=== PATIENT | female | born 1965 | race Hispanic/Latino ===

== ENCOUNTER 2024-06-30 17:48 | Emergency (ER) | payer OTHER, SELFPAY ==
[2024-06-30 17:55] VITALS: BP 144/85
[2024-06-30 17:59] LABS: Glucose - Point of Care 341 mg/dl (70-99)
[2024-06-30 18:09] LABS: Hematocrit 41.3 % (37.0-47.0); Hemoglobin 13.4 g/dL (12.0-16.0); Mean Corp Hgb Conc. 32.4 g/dL (33.0-37.0); Mean Corpuscular Hgb 28.8 pg (27.0-31.0); Mean Corpuscular Volume 88.8 fL (81.0-99.0); Platelet Count 279 10^3/uL (130-400); Red Blood Cell Count 4.65 10^6/uL (4.20-5.40); Red Cell Dist. Width 13.9 % (11.5-14.5); White Blood Cell Count 6.3 10^3/uL (4.8-10.8)
[2024-06-30 18:24] LABS: ALT (SGPT) 46 U/L (0-35); Albumin 4.6 g/dl (3.5-5.0); Alkaline Phosphatase 89 U/L (38-126); Blood Urea Nitrogen 14 mg/dl (7-17); Calcium 9.6 mg/dl (8.4-10.2); Carbon Dioxide 24 mmol/L (22-30); Chloride 104 mmol/L (98-107); Potassium 4.1 mmol/L (3.5-5.1); Sodium 139 mmol/L (135-145); Total Bilirubin 0.5 mg/dl (0.2-1.3); Total Protein 7.3 g/dl (6.3-8.2); eGFR > 60.00
[2024-06-30 18:28] LABS: % Basophils 0.5 % (0-2); % Immature Granulocytes 0.3 % (0-0.5); % Lymphocytes 60.1 % (20.5-51.1); % Monocytes 4.9 % (1.7-9.3); % Neutrophils 31.2 % (42.2-75.2); Absolute Eosinophils 0.2 10^3/uL (0-0.7); Absolute Lymphocytes 3.8 10^3/uL (1.2-3.4); Absolute Monocytes 0.3 10^3/uL (0.1-0.6); Nucleated Red Blood Cells % 0 %
[2024-06-30 18:34] LABS: AST (SGOT) 66 U/L (14-36); Glucose 352 mg/dl (70-99)
[2024-06-30 18:53] LABS: B-Hydroxybutyrate 0.18 mmol/L (0.02-0.27)
--- NOTE | 2024-06-30 20:12 | ED.GENMED ---
History of Present Illness
General
Chief Complaint: Blood Sugar Problem
Source: patient
Exam Limitations: none
Time Seen by Provider: 06/30/24 19:52
Nursing documentation reviewed up to this point in time: agreed with
History of Present Illness
History of Present Illness:
Patient with history of insulin dependent diabetes, presents to ED requesting medication refill, as she has run out of her medications, over the past 3 weeks. As [place] recently, patient currently does not have any
primary care physician who can provide her with medications. Patient has an appointment with new family physician next month, for initial consultation. Patient denies fever or chills. Reports nausea sensation without vomiting. Denies diarrhea.
Denies abdominal pain. Denies chest pain. Denies shortness of breath. Denies weakness. Patient is complaining of intermittent headache as well as nausea sensation, which she has experienced in the past, when her blood sugar has been high.
Past History
Past History
ED Past Medical History: HTN, Hypercholesterolemia, IDDM and Other (Low back issues, Renal calculus)
ED Past Surgical History: Orthopedic (lower back surgery) and Urological (Stent)
Social History
Tobacco: Non-smoker
Alcohol: None
Drug: None
Personal: Single
Living: alone
Employment: Not employed
Review of Systems
Review of Systems
Allergies reviewed?: Yes
All Other Systems: ROS reviewed and negative except as documented in HPI and ROS
Constitutional: Reports no symptoms
EENT: Reports no symptoms
Respiratory: Reports no symptoms
Cardiac: Reports no symptoms
ABD/GI: Reports nausea
Musculoskeletal: Reports no symptoms
Skin: Reports no symptoms
Neurological: Reports headache
Phy Exam
Physical Exam
Physical Exam:
Physical Exam
General: no apparent distress, not acutely ill. afebrile
Head: nc/at. eomi
Neck: supple. no meningeal signs.
Heart: s1/s2 regular rate and rhythm, no murmur. equal radial pulses.
Lungs: no acute respiratory distress. clear bilaterally
Abdomen: normal bowel sounds. not tender.
Neuro: alert and oriented. no focal neurological deficits
Skin: no rash
Psychiatric: well kept. interactive and cooperative
Extremities: no edema. no calf tenderness.
Course
Orders/Labs/Results
Orders:
Orders
06/30/24 18:01
B-Hydroxybutyrate Urgent
Complete Blood Count/With Diff Urgent
Comprehensive Metabolic Panel Urgent
06/30/24 20:08
Insulin Aspart [NOVOLOG vial] 12 units SC NOW STA
06/30/24 20:13
Insulin Glargine Lantus [Lantus] 60 units Subcutaneous Insulin Syringe [Syringe-Insulin] 0 unit SC NOW
Abnormal Lab Results
06/30/24 06/30/24 06/30/24
17:58 18:01 20:15
MCHC 32.4 L g/dL
(33.0-37.0)
Absolute Lymphs (auto) 3.8 H 10^3/uL
(1.2-3.4)
Neutrophils % 31.2 L %
(42.2-75.2)
Lymphocytes % 60.1 H %
(20.5-51.1)
Glucose 352 H mg/dl
(70-99)
AST 66 H U/L
(14-36)
ALT 46 H U/L
(0-35)
POC Glucose 341 H mg/dl 281 H mg/dl
(70-99) (70-99)
06/30/24 18:01
06/30/24 18:01
Vital Signs
Initial and Last Documented VS:
Initial Vital Signs
Temp Pulse Resp BP Pulse Ox
98.3 F 69 16 144/85 98
06/30/24 17:55 06/30/24 17:55 06/30/24 17:55 06/30/24 17:55 06/30/24 17:55
Last Documented Vital Signs
Temp Pulse Resp BP Pulse Ox
98.3 F 69 16 144/85 98
06/30/24 17:55 06/30/24 17:55 06/30/24 17:55 06/30/24 17:55 06/30/24 20:19
MDM/Problems Addressed
MDM/Problems Addressed:
Blood work reviewed, significant for expected hyperglycemia, without anion gap. Otherwise, patient is afebrile, hemodynamically stable, and nontoxic-appearing. As patient does not have an appointment for another month, patient will be given
prescription for Lantus, as well as 2 oral diabetic medications, as well as losartan for blood pressure. In addition, patient given information for [facility] clinic, as resource to be utilized, if she is unable to be seen
by her new physician in timely fashion.
Patient will be provided with SC insulin, short acting, as well as her evening dose of Lantus 60 units, prior to discharge, to the care of her family.
*Critical Care Note
Total Time (30-74mins, 75-104mins- exclusive of procedures): Not Applicable
ED Attending Note
-
Portions of this chart may have been created with voice recognition software.� Occasional wrong word or��sound alike� substitutions may have occurred due to the inherent limitations of voice recognition software.
Discharge Plan
Departure
Patient Disposition: Home (Routine Discharge)
Date of Disposition: 06/30/24
Time of Disposition: 20:18
Patient with high blood pressure during this ER visit?: Yes
Condition: Good
Discharge Problem:
Hyperglycemia, Encounter for medication refill
Instructions: High Blood Sugar, Adult ED
Prescriptions:
New
losartan 25 mg tablet
25 mg PO DAILY Qty: 60 0RF
metformin 1,000 mg tablet
1,000 mg PO BID Qty: 120 0RF
pioglitazone 15 mg tablet
15 mg PO DAILY Qty: 60 0RF
No Action
atorvastatin 20 MG tablet
20 mg PO HS
metformin 1,000 MG tablet
1,000 mg PO BID@0800,1800
losartan 25 MG tablet
25 mg PO DAILY
insulin glargine [Lantus Solostar U-100 Insulin] 300 UNITS/3 ML insulin pen
60 units SC HS
dulaglutide [Trulicity] 0.75 MG/0.5 ML pen injector
0.75 mg SQ TH
acetaminophen 325 MG tablet
650 mg PO Q6HPRN PRN (Reason: mild pain/ fever>100.5F) 0RF
cefdinir 300 MG capsule
300 mg PO Q12 Qty: 14 0RF
Referrals:
[facility] [Outside]
Activity Restrictions/Additional Instructions:
As discussed, please follow-up with your primary care physician or referred [facility] for further evaluation and treatment. Your prescriptions have been sent electronically to [facility] pharmacy in [place].
Interventions
Interventions:
*Risk Screen - Suicide Last Done: 06/30/24 18:00
*General Assessment Last Done: 06/30/24 20:31
*Neglect/Abuse Screening Last Done: 06/30/24 18:00
ED- Fall Risk Assessment Last Done: 06/30/24 20:18
*ED COVID-19 Vaccine History Last Done: 06/30/24 20:42
*Nursing Disposition Last Done: 06/30/24 20:31
ED- Neurological Assessment Last Done: 06/30/24 20:18
Discharge Date and Time
Discharge Date/Time: 06/30/24 20:42
Print Language: SRI LANKAN
[2024-06-30] MEDS: NOVOLOG vial 12 UNITS SC (20:14)
[2024-06-30 20:17] LABS: Glucose - Point of Care 281 mg/dl (70-99)
[2024-06-30 20:20] VITALS: BMI 28.6
[2024-06-30] MEDS: LANTUS 0.6 UNITS SC (20:27)
== END 2024-06-30 20:42 | disposition home or self-care (01) ==
LOC: EMR 17:48
PROVIDERS: Emergency Medicine; EMERGENCY PHYSICIAN Emergency Medicine; FAMILY PHYSICIAN Internal Medicine
DX: E11.65 Type 2 diabetes mellitus with hyperglycemia (principal); Z76.0 Encounter for issue of repeat prescription; Z91.148 Patient's other noncompliance with medication regimen for other reason; I10 Essential (primary) hypertension
CPT/HCPCS: 99284; 96372; 80053; 82010; 82962; 85025

== ENCOUNTER 2024-08-30 14:28 | Emergency (ER) | payer OTHER, SELFPAY ==
[2024-08-30 14:34] VITALS: BP 142/86
[2024-08-30 15:20] LABS: COVID-19 Antigen Negative (Negative)
[2024-08-30 16:06] VITALS: BMI 30.3
[2024-08-30 16:09] VITALS: BP 116/81
[2024-08-30] MEDS: TYLENOL 1000 MG PO (16:13)
[2024-08-30] MEDS: TESSALON PERLES 200 MG PO (16:31)
[2024-08-30] MEDS: VENTOLIN NEBULES 2.5 MG INH (16:32)
--- NOTE | 2024-08-30 17:04 | ED.GENMED ---
History of Present Illness
General
Chief Complaint: Cold/Flu/URI Symptoms
Source: patient
Exam Limitations: none
Time Seen by Provider: 08/30/24 16:11
Nursing documentation reviewed up to this point in time: agreed with
History of Present Illness
History of Present Illness:
Patient is a 50-year-old female who presents to the ER for evaluation of cough body aches, headaches and episode of vomiting, Fever chills starting 2 days ago. She took ibuprofen earlier this morning. She denies any shortness of breath but she
does complain of coughing.
Past History
Past History
ED Past Medical History: HTN, Hypercholesterolemia, IDDM and Other (Low back issues, Renal calculus)
ED Past Surgical History: Orthopedic (lower back surgery) and Urological (Stent)
Social History
Tobacco: Non-smoker
Alcohol: None
Drug: None
Personal: Single
Living: alone
Employment: Not employed
Review of Systems
Review of Systems
Allergies reviewed?: Yes
All Other Systems: ROS reviewed and negative except as documented in HPI and ROS
Constitutional: Reports fever, fatigue and chills
EENT: Reports no symptoms
Respiratory: Reports cough
Cardiac: Reports no symptoms
ABD/GI: Reports nausea and vomiting; Denies abdominal pain
: Reports no symptoms
Musculoskeletal: Reports no symptoms
Skin: Reports no symptoms
Neurological: Reports headache
Hematologic/Lymphatic: Reports no symptoms
Psychiatric: Reports no symptoms
Phy Exam
General Physical Exam
General Presentation: no apparent distress
General age: appears stated age
General Skin: warm
General Habitus: normal
General Mental: alert
General Hydration: appears well hydrated
Eye Exam
Eye Exam: PERRL and EOMI
Eye Exam General: PERRL: bilateral and EOM intact: bilateral
Pupil Exam: Bilateral: round and reactive
Cardiovascular Exam
Cardiovascular Exam: regular rate/rhythm, no murmur and normal peripheral pulses
Pulmonary Exam
Pulmonary Exam: lungs clear, no respiratory distress and other (Positive cough)
Neurological Exam
Neurological Exam: alert and oriented x3
Jil Coma Scale
Eye Opening: Spontaneous
Verbal Response: Oriented
Motor Response: Obeys Commands
GCS Total Score: 15
Musculoskeletal Exam
Musculoskeletal Exam: full ROM
Skin Exam
Skin Exam: normal color and warm/dry
Psychiatric Exam
Psychiatric Exam: normal mood/affect
Course
Orders/Labs/Results
Orders:
Orders
08/30/24 14:38
COVID-19 Antigen Urgent
Source: Nasal Swab
08/30/24 14:39
Influenza A+B Rapid Molecular Urgent
CONI Source: Nasal Swab
Specimen Description:
08/30/24 16:11
Acetaminophen [Tylenol] 1,000 mg PO NOW STA
08/30/24 16:25
Albuterol Nebs [Ventolin Nebules] 2.5 mg INH R NOW STA
Benzonatate [Tessalon Perles] 200 mg PO NOW STA
08/30/24 17:07
Oseltamivir Phosphate [Tamiflu] 75 mg PO NOW STA
Vital Signs
Initial and Last Documented VS:
Initial Vital Signs
Temp Pulse Resp BP Pulse Ox
100.0 F 96 17 142/86 99
08/30/24 14:34 08/30/24 14:34 08/30/24 14:34 08/30/24 14:34 08/30/24 14:34
Last Documented Vital Signs
Temp Pulse Resp BP Pulse Ox
100.3 F 90 18 116/81 95
08/30/24 16:09 08/30/24 16:09 08/30/24 16:09 08/30/24 16:09 08/30/24 16:09
MDM/Problems Addressed
MDM/Problems Addressed:
Patient was found to be flu positive no acute distress nonhypoxic low-grade temp here in the ER no wheezing however with cough. Lungs are clear throughout. Likely influenza and less likely pneumonia. Patient was given a neb here Tessalon Perles
that has made her feel better.. Will DC with albuterol inhaler Tessalon Perles. Patient does request Tamiflu and she is a diabetic which is reasonable her last kidney function was done June 2024 and normal.
Patient and no acute distress nontoxic nonhypoxic low-grade temp here in the ER.
Stable for discharge home with supportive care
Chronic conditions affecting care:
Diabetes
*Pulse Oximetry
Patient hypoxic: no
*Critical Care Note
Total Time (30-74mins, 75-104mins- exclusive of procedures): Not Applicable
ED Attending Note
-
Portions of this chart may have been created with voice recognition software.� Occasional wrong word or��sound alike� substitutions may have occurred due to the inherent limitations of voice recognition software.
Discharge Plan
Departure
Patient Disposition: Home (Routine Discharge)
Date of Disposition: 08/30/24
Time of Disposition: 17:09
Patient with high blood pressure during this ER visit?: Yes
Condition: Fair
Covid-19: Not Applicable
Discharge Problem:
Influenza A
Instructions: Fever, Adult (DC), Flu in adults - Discharge instructions
Prescriptions:
New
oseltamivir [Tamiflu] 75 mg capsule
75 mg PO BID Qty: 9 0RF
albuterol sulfate 90 mcg/actuation HFA aerosol inhaler
2 inh inhalation Q6H PRN (Reason: shortness of breath or wheezing) Qty: 6.7 0RF
benzonatate 200 mg capsule
200 mg PO TID PRN (Reason: Cough) Qty: 6 0RF
No Action
atorvastatin 20 MG tablet
20 mg PO HS
metformin 1,000 MG tablet
1,000 mg PO BID@0800,1800
losartan 25 MG tablet
25 mg PO DAILY
insulin glargine [Lantus Solostar U-100 Insulin] 300 UNITS/3 ML insulin pen
60 units SC HS
dulaglutide [Trulicity] 0.75 MG/0.5 ML pen injector
0.75 mg SQ TH
acetaminophen 325 MG tablet
650 mg PO Q6HPRN PRN (Reason: mild pain/ fever>100.5F) 0RF
cefdinir 300 MG capsule
300 mg PO Q12 Qty: 14 0RF
losartan 25 mg tablet
25 mg PO DAILY Qty: 60 0RF
metformin 1,000 mg tablet
1,000 mg PO BID Qty: 120 0RF
pioglitazone 15 mg tablet
15 mg PO DAILY Qty: 60 0RF
Stand Alone Forms: Return to Work
Activity Restrictions/Additional Instructions:
As discussed be sure to get plenty rest and stay well hydrated. You may alternate between Tylenol and ibuprofen for fever chills body aches. Prescriptions for inhaler along with Tessalon Perles and Tamiflu was sent to your pharmacy. You were
given the first of Tamiflu here in the ER as well as Tessalon Perles for cough. Follow-up with your family doctor in the next 1 days and return if any worsening of symptoms
Interventions
Interventions:
*Risk Screen - Suicide Last Done: 08/30/24 14:35
*General Assessment Last Done: 08/30/24 14:35
*Neglect/Abuse Screening Last Done: 08/30/24 14:35
*ED COVID-19 Vaccine History Last Done: 08/30/24 14:35
*Nursing Disposition Last Done: 08/30/24 17:31
ED- Pulmonary Assessment Last Done: 08/30/24 16:10
Discharge Date and Time
Discharge Date/Time: 08/30/24 17:31
Print Language: [id number]
[2024-08-30] MEDS: TAMIFLU 75 MG PO (17:27)
== END 2024-08-30 17:31 | disposition home or self-care (01) ==
LOC: EMR 14:28
PROVIDERS: Emergency Medicine; EMERGENCY PHYSICIAN Emergency Medicine; FAMILY PHYSICIAN Internal Medicine
DX: J10.1 Influenza due to other identified influenza virus with other respiratory manifestations (principal); I10 Essential (primary) hypertension; E78.00 Pure hypercholesterolemia, unspecified; E11.9 Type 2 diabetes mellitus without complications; Z87.442 Personal history of urinary calculi
CPT/HCPCS: 99283; 94640; 87502; 87811